=== PATIENT | male | born 1995 ===

== ENCOUNTER 2018-07-22 10:01 | Emergency (ER) | payer OTHER ==
[2018-07-22 10:34] VITALS: RESP 18; TEMP 98.3; O2SAT 99; BMI 26.6
[2018-07-22] MEDS ORDERED: Sodium Chloride 0.9% 1,000 ML IV STA (10:40)
--- NOTE | 2018-07-22 10:44 | ED PDOC ---
Addendum entered and electronically signed by Mitch Figueroa PA-C 07/22/18 12:05: Addendum Addendum: 07/22/18 12:05 UA show no hematuria. 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 flank pain started yesterday with no fall or trauma. Aching and sharp pain, associated couple episodes of hematuria, no night sweat, no palpitation, no rash, no dizziness, no change in vision, no numbness or tingling, no palpitation, no testicular pain, no penile discharge, no other medical or psychological complaints. Past Medical History - Provider Review Nursing Documentation Reviewed: Yes - Psychiatric Hx Substance Use: No Family/Social History - Physician Review Nursing Documentation Reviewed: Yes Family/Social History: Unknown Family HX Smoking Status: Never Smoked Hx Alcohol Use: No Hx Substance Use: No Allergies/Home Meds Allergies/Adverse Reactions: Allergies No Known Allergies Allergy (Verified 07/22/18 10:33) Review of Systems - Review of Systems Constitutional: absent: Fatigue, Fevers Eyes: absent: Vision Changes ENT: absent: Hearing Changes Respiratory: absent: SOB, Cough Cardiovascular: absent: Chest Pain Gastrointestinal: absent: Abdominal Pain, Nausea, Vomiting Genitourinary Male: Hematuria Musculoskeletal: absent: Arthralgias, Back Pain, Neck Pain, Joint Swelling, Myalgias Skin: absent: Rash, Pruritis Neurological: absent: Headache, Dizziness Psychiatric: absent: Anxiety, Depression Physical Exam Vital Signs Reviewed: Yes Vital Signs Temp Pulse Resp BP Pulse Ox 07/22/18 10:33 98.3 F 82 18 128/79 99 Temperature: Afebrile Blood Pressure: Normal Pulse: Regular Respiratory Rate: Normal Appearance: Positive for: Well-Appearing, Non-Toxic, Comfortable Pain Distress: Moderate Mental Status: Positive for: Alert and Oriented X 3 - Systems Exam Head: Present: Atraumatic, Normocephalic Pupils: Present: PERRL Extroacular Muscles: Present: EOMI Conjunctiva: Present: Normal Mouth: Present: Moist Mucous Membranes Neck: Present: Normal Range of Motion Respiratory/Chest: Present: Clear to Auscultation, Good Air Exchange. No: Respiratory Distress, Accessory Muscle Use Cardiovascular: Present: Regular Rate and Rhythm, Normal S1, S2. No: Murmurs Abdomen: No: Tenderness, Distention, Peritoneal Signs, Rebound, Guarding Genitourinary Male: Present: Normal External Genitalia. No: Lesions, Penile Discharge, Testicle Tenderness, Penile Swelling, Masses, Erythema, Hernias, Testicle Swelling Back: Present: Normal Inspection, CVA Tenderness (rt. flank), Other (no flank discoloration). No: Midline Tenderness, Paraspinal Tenderness Upper Extremity: Present: Normal Inspection, Capillary Refill < 2s. No: Cyanosis, Edema, Normal ROM, NORMAL PULSES, Tenderness, Swelling, Neurovascularly Intact, Deformity Lower Extremity: Present: Normal Inspection. No: Edema Neurological: Present: GCS=15, CN II-XII Intact, Speech Normal Skin: Present: Warm, Dry, Normal Color. No: Rashes Psychiatric: Present: Alert, Oriented x 3, Normal Insight, Normal Concentration Medical Decision Making ED Course and Treatment: 07/22/18 10:43 -labs/ua -CT abdomen and pelvis -IVF/toradol -Observe and reassess 07/22/18 11:56 -CT abdomen and pelvis show No evidence of urinary calculus. No abnormality identified. -Labs show no acute findings -Lipase within normal limit -UA show +UTI, IV rocephine 1gm -Pt. feels well, no pain now -All labs and radiology result discussed with the patient -Discharge home with keflex, motrin, stay hydrated, follow up with your own pmd and urologist within 2 days, return to the ER for any new or worsening signs or symptoms. - Lab Interpretations I have reviewed the lab results: Yes - RAD Interpretation Radiology Orders: 07/22/18 10:40 ABD & PELVIS W/O PO OR IV CONT [CT] Stat Date of service: 07/22/2018 PROCEDURE: CT Abdomen and Pelvis without intravenous contrast HISTORY: rt. flank pain, hematuria COMPARISON: None. TECHNIQUE: Without contrast.. Contrast dose: 0 Radiation dose: Total exam DLP = 521.73 mGy-cm. This CT exam was performed using one or more of the following dose reduction techniques: Automated exposure control, adjustment of the mA and/or kV according to patient size, and/or use of iterative reconstruction technique. FINDINGS: LOWER THORAX: Unremarkable. LIVER: Unremarkable. No gross lesion or ductal dilatation. GALLBLADDER AND BILE DUCTS: Unremarkable. PANCREAS: Unremarkable. No gross lesion or ductal dilatation. SPLEEN: Unremarkable. ADRENALS: Unremarkable. No mass. KIDNEYS AND URETERS: Unremarkable. No hydronephrosis. No solid mass. No renal or ureteral calculus. VASCULATURE: Unremarkable. No aortic aneurysm. BOWEL: Unremarkable. No obstruction. No gross mural thickening. APPENDIX: Unremarkable. Normal appendix. PERITONEUM: Unremarkable. No free fluid. No free air. LYMPH NODES: Unremarkable. No enlarged lymph nodes. BLADDER: Poorly distended. No gross abnormality. REPRODUCTIVE: Normal prostate BONES: No acute fracture. OTHER FINDINGS: None. IMPRESSION: No evidence of urinary calculus. No abnormality identified. 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 Disposition/Present on Arrival - Present on Arrival Any Indicators Present on Arrival: No History of DVT/PE: No History of Uncontrolled Diabetes: No Urinary Catheter: No History of Decub. Ulcer: No History Surgical Site Infection Following: None - Disposition Have Diagnosis and Disposition been Completed?: Yes Diagnosis: UTI (urinary tract infection) Disposition: HOME/ ROUTINE Disposition Time: 11:58 Patient Plan: Discharge Patient Problems: Current Active Problems Problem Status Onset UTI (urinary tract infection) Acute Condition: GOOD Additional Instructions: -Discharge home with keflex, motrin, stay hydrated, follow up with your own pmd and urologist within 2 days, return to the ER for any new or worsening signs or symptoms. Prescriptions: Cephalexin [cephalexin] 500 mg PO QID #28 cap Ibuprofen [Motrin Tab] 600 mg PO QID PRN #30 tab PRN Reason: Other Referrals: Joseph Armas MD [Staff Provider] - Follow up with primary [facility] [place] - Follow up with primary Forms: [employer] (Nepali), WORK NOTE
[2018-07-22 11:42] LABS: BASO # 0.01 K/mm3 (0.0-2.0); BASO % 0.1 % (0.0-3.0); EOS % 0.3 % (1.5-5.0); GRAN # 4.98 (1.4-6.5); GRAN % 63.5 % (50.0-68.0); LYMPH # 2.5 (1.2-3.4); LYMPH % 31.9 % (22.0-35.0); MEAN CELL VOLUME 82.4 fl (80.0-105.0); MEAN CORPUSCULAR HEMOGLOBIN 28.5 pg (25.0-35.0); MEAN CORPUSCULAR HGB CONC 34.6 g/dl (31.0-37.0); MEAN PLATELET VOLUME 10.2 fl (7.0-11.0); MONO # 0.3 (0.1-0.6); MONO % 4.2 % (1.0-6.0); RBC 5.61 10^6/uL (3.5-6.1); RED CELL DISTRIBUTION WIDTH 13.9 % (11.5-14.5); URINE APPEARANCE CLEAR (CLEAR); URINE BILIRUBIN NEGATIVE (NEGATIVE); URINE BLOOD NEGATIVE (NEGATIVE); URINE COLOR DARK YELLOW (YELLOW); URINE GLUCOSE (UA) NEGATIVE (NEGATIVE); URINE LEUKOCYTE ESTERASE NEGATIVE Leu/uL (NEGATIVE); URINE PROTEIN TRACE mg/dL (<30 mg/dL); URINE UROBILINOGEN 0.2 E.U./dL (<1 E.U./dL); WHITE BLOOD COUNT 7.8 10^3/ul (4.5-11.0)
[2018-07-22 11:49] LABS: URINE BACTERIA FEW (NEG); URINE RBC 0 - 2 /hpf (0-2); URINE WBC 0 - 2 /hpf (0-6)
--- NOTE | 2018-07-22 11:49 | CT ---
Date of service: 07/22/2018 PROCEDURE: CT Abdomen and Pelvis without intravenous contrast HISTORY: rt. flank pain, hematuria COMPARISON: None. TECHNIQUE: Without contrast.. Contrast dose: 0 Radiation dose: Total exam DLP = 521.73 mGy-cm. This CT exam was performed using one or more of the following dose reduction techniques: Automated exposure control, adjustment of the mA and/or kV according to patient size, and/or use of iterative reconstruction technique. FINDINGS: LOWER THORAX: Unremarkable. LIVER: Unremarkable. No gross lesion or ductal dilatation. GALLBLADDER AND BILE DUCTS: Unremarkable. PANCREAS: Unremarkable. No gross lesion or ductal dilatation. SPLEEN: Unremarkable. ADRENALS: Unremarkable. No mass. KIDNEYS AND URETERS: Unremarkable. No hydronephrosis. No solid mass. No renal or ureteral calculus. VASCULATURE: Unremarkable. No aortic aneurysm. BOWEL: Unremarkable. No obstruction. No gross mural thickening. APPENDIX: Unremarkable. Normal appendix. PERITONEUM: Unremarkable. No free fluid. No free air. LYMPH NODES: Unremarkable. No enlarged lymph nodes. BLADDER: Poorly distended. No gross abnormality. REPRODUCTIVE: Normal prostate BONES: No acute fracture. OTHER FINDINGS: None. IMPRESSION: No evidence of urinary calculus. No abnormality identified.
[2018-07-22 11:53] LABS: ALB/GLOB RATIO 1.3 (1.1-1.8); ALT/SGPT 44 U/L (7-56); AST/SGOT 44 U/L (17-59); BLOOD UREA NITROGEN 13 mg/dL (7-21); CALCIUM 9.7 mg/dL (8.4-10.5); GFR NON-AFRICAN AMERICAN > 60; LIPASE 51 U/L (23-300)
[2018-07-22] MEDS ORDERED: cefTRIAXone 1 gm 1 GM/100 ML BAG IVPB STA (12:01)
[2018-07-22 13:10] VITALS: BP 128/77; PULSE 78
[2018-07-22] MEDS ORDERED: Naloxone 0.4 mg/ml Inj (Adult) ONE ×2 (23:22→23:24)
== END 2018-07-22 13:47 | disposition home or self-care (01) ==
LOC: ED 10:01
DX: N39.0 Urinary tract infection, site not specified (principal)
CPT/HCPCS: 74176; 80053; 81001; 83690; 83735; 85025; 87086; 96361; 96365; 96375; 99283; J0696; J1885; J7030